=== PATIENT | male | born 1970 ===

== ENCOUNTER 2017-03-29 19:00 | Emergency (ER) | payer MEDICAID ==
[2017-03-29 19:42] VITALS: BP 148/78; PULSE 94; RESP 18; TEMP 97.5; O2SAT 98
--- NOTE | 2017-03-29 20:01 | ED PDOC ---
HPI: Skin/Bite Injury Time Seen by Provider: 03/29/17 19:55 Chief Complaint (Nursing): Abnormal Skin Integrity Chief Complaint (Provider): Abnormal skin integrity History Per: Patient History/Exam Limitations: no limitations Onset/Duration Of Symptoms: Days (x10 ) Current Symptoms Are (Timing): Still Present Additional Complaint(s): Serge Perrin is a 47 year old male, with no past medical history, who presents to the emergency department complaining of a lump to the upper back associated with swelling onset 10 days ago. Patient reports that recently the pain has worsen. He denies any fever or chills. No further medical complaints. PMD: None provided. Past Medical History Reviewed: Historical Data, Nursing Documentation, Vital Signs Vital Signs: Last Vital Signs Temp 97.5 F L 03/29/17 19:38 Pulse 94 H 03/29/17 19:38 Resp 18 03/29/17 19:38 BP 148/78 03/29/17 19:38 Pulse Ox 98 03/29/17 20:13 - Family History Family History: States: Unknown Family Hx - Social History Current smoker - smoking cessation education provided: No Alcohol: None Drugs: Denies - Home Medications Home Medications: Ambulatory Orders Medication Instructions Recorded Cephalexin [Keflex] 500 mg PO Q6 PRN #20 capsule 03/29/17 - Allergies Allergies/Adverse Reactions: Allergies Allergy/AdvReac Type Severity Reaction Status Date / Time No Known Allergies Allergy Verified 03/29/17 19:38 Review of Systems ROS Statement: Except As Marked, All Systems Reviewed And Found Negative Constitutional: Negative for: Fever, Chills Skin: Positive for: Other (cyst on upper back with swelling and pain) Physical Exam - Reviewed Nursing Documentation Reviewed: Yes Vital Signs Reviewed: Yes - Physical Exam Appears: Positive for: Well, Non-toxic, No Acute Distress Head Exam: Positive for: ATRAUMATIC, NORMAL INSPECTION, NORMOCEPHALIC Skin: Positive for: Normal Color, Warm, Dry Eye Exam: Positive for: Normal appearance Neck: Positive for: Normal, Painless ROM, Supple Respiratory: Negative for: Respiratory Distress Back: Positive for: Other (1 cm sebaceous cyst, no surrounding erythema. Mild induration noted below cyst. ) Extremity: Positive for: Normal ROM Neurologic/Psych: Positive for: Alert, Oriented - ECG O2 Sat by Pulse Oximetry: 98 (RA) Pulse Ox Interpretation: Normal Medical Decision Making Medical Decision Making: Initial Impression: sebaceous cyst Initial Plan: -Patient was instructed to apply warm compresses, take Abx q6h and to return for I&D in 2 days. Scribe Attestation: Documented by Juan Miguel Estrada, acting as a scribe for Kunal BURNETT. Provider Scribe Attestation: All medical record entries made by the Scribe were at my direction and personally dictated by me. I have reviewed the chart and agree that the record accurately reflects my personal performance of the history, physical exam, medical decision making, and the department course for this patient. I have also personally directed, reviewed, and agree with the discharge instructions and disposition. Disposition - Clinical Impression Clinical Impression: Sebaceous cyst - Patient ED Disposition Is Patient to be Admitted: No - Disposition Referrals: [facility] [Outside] Disposition: Routine/Home Disposition Time: 19:59 Condition: FAIR Additional Instructions: regresa en 2 marina para chequarte Prescriptions: Cephalexin [Keflex] 500 mg PO Q6 PRN #20 capsule PRN Reason: Pain, Moderate (4-7) Instructions: Cyst (ED) Forms: [facility] ([place]an) Print Language: INDIAN
== END 2017-03-29 19:59 | disposition home or self-care (01) ==
LOC: H.ER 19:00
DX: L72.3 Sebaceous cyst (principal)